=== PATIENT | female | born 1925 | race Caucasian/White ===

== ENCOUNTER → 2016-04-14 | Outpatient (CLI) | payer MEDICARE ==
[~2016-04-14] MED LIST: ASPEC81 PO; BIOT1CAP8; CALC250T8; LSN5 PO; LSX/40 PO; MCRK20 PO; MULT-506 PO; TPRSR25 PO
[2016-04-14 10:57] LABS: BLOOD UREA NITROGEN 23 mg/dl (7-18); CALCIUM 9.4 mg/dl (8.5-10.1); CARBON DIOXIDE 30 mmol/L (21-32); CHLORIDE 101 mmol/L (98-107); GLUCOSE 94 mg/dl (70-99); POTASSIUM 4.3 mmol/L (3.5-5.1); SODIUM 138 mmol/L (136-145)
== END | disposition home or self-care (01) ==
LOC: C.LAB1850 09:42
PROVIDERS: ATTEND Internal Medicine Cardiovascular Disease
DX: I42.9 Cardiomyopathy, unspecified (principal); I50.22 Chronic systolic (congestive) heart failure

== ENCOUNTER → 2016-06-13 | Outpatient (CLI) | payer MEDICARE ==
[2016-06-13 09:21] LABS: BLOOD UREA NITROGEN 28 mg/dl (7-18); BUN/CREATININE RATIO 25.5 (10-20); CALCIUM 9.3 mg/dl (8.5-10.1); CARBON DIOXIDE 30 mmol/L (21-32); CHLORIDE 103 mmol/L (98-107); GLUCOSE 130 mg/dl (70-99); POTASSIUM 4.3 mmol/L (3.5-5.1); SODIUM 141 mmol/L (136-145)
== END | disposition home or self-care (01) ==
LOC: C.LABVPSUW 08:52
PROVIDERS: ATTEND Internal Medicine Critical Care Medicine
DX: N28.9 Disorder of kidney and ureter, unspecified (principal)